=== PATIENT | male | born 1975 | race African-American/Black ===

== ENCOUNTER → 2017-07-24 | Outpatient (CLI) | payer BC ==
[2017-07-24 10:52] LABS: BASOPHILS % 1.2 % (0.0-2.0); HEMATOCRIT. 39.5 % (42.0-52.0); HEMOGLOBIN. 14.2 g/dL (14.0-18.0); LYMPHOCYTES % 38.2 % (20.0-50.0); MEAN CORPUSCULAR HEMOGLOBIN 33.6 pg (28.0-32.0); MEAN CORPUSCULAR VOLUME 93.2 fL (80.0-94.0); MEAN PLATELET VOLUME 7.2 fl (7.4-10.4); MONOCYTES % 7.8 % (2.0-8.0); NEUTROPHILS % 44.8 % (40.0-76.0); PLATELET 284 x1000/uL (130-400); RED BLOOD CELL COUNT 4.24 mill/uL (4.7-6.1); RED CELL DISTRIBUTION WIDTH 14.7 % (11.6-14.6)
[2017-07-24 10:53] LABS: KETONES URINE NEGATIVE (NEGATIVE); LEUKOCYTE ESTERASE URINE NEGATIVE (NEGATIVE); NITRITE URINE NEGATIVE (NEGATIVE); OCCULT BLOOD URINE NEGATIVE (NEGATIVE); PH URINE 7.5 (4.5-8.0); PROTEIN URINE NEGATIVE (NEGATIVE); SPECIFIC GRAVITY URINE 1.021 (1.005-1.030)
[2017-07-24 10:54] LABS: CLARITY URINE CLEAR (CLEAR); COLOR URINE YELLOW (YELLOW)
[2017-07-24 12:44] LABS: CHLORIDE 108 mEq/L (98-107)
== END | disposition home or self-care (01) ==
LOC: LAB 10:08
PROVIDERS: ATTEND Internal Medicine Nephrology
DX: R42 Dizziness and giddiness (principal)
CPT/HCPCS: 36415; 83036; 84443

== ENCOUNTER 2017-12-02 17:17 | Emergency (ER) | payer BC, OTHER ==
[~2017-12-02] VITALS: Ht 190.5 cm; Wt 100.0 kg
[2017-12-02 17:23] VITALS: BP 112/76
[2017-12-02 20:02] LABS: HEPATITIS B SURFACE AB 4.3 mIU/mL
[2017-12-02 20:13] LABS: HEPATITIS B SURFACE ANTIGEN NEGATIVE
[2017-12-04 08:21] LABS: HEPATITIS B CORE ANTIBODY Negative (Negative); HIV SCREEN 4G Non Reactive (Non Reactive)
== END 2017-12-02 18:49 | disposition left against medical advice (07) ==
LOC: ER 18:49
DX: S69.92XA Unspecified injury of left wrist, hand and finger(s), initial encounter (principal); X58.XXXA Exposure to other specified factors, initial encounter; Y93.89 Activity, other specified; Y92.89 Other specified places as the place of occurrence of the external cause; Y99.8 Other external cause status
CPT/HCPCS: 36415; 86703; 87186; 99284

== ENCOUNTER 2020-08-20 18:41 | Emergency (ER) | payer BC, OTHER ==
[~2020-08-20] VITALS: Ht 160 cm; Wt 97.0 kg
[2020-08-20] MEDS ORDERED: IBUPROFEN 600MG TABLET PO ONE (19:45)
[2020-08-20 20:10] VITALS: BP 117/73
== END 2020-08-20 20:40 | disposition home or self-care (01) ==
LOC: ER 18:41
DX: S61.011A Laceration without foreign body of right thumb without damage to nail, initial encounter (principal); Z98.890 Other specified postprocedural states; X58.XXXA Exposure to other specified factors, initial encounter; Y93.89 Activity, other specified; Y92.89 Other specified places as the place of occurrence of the external cause; Y99.8 Other external cause status
CPT/HCPCS: 99282; Z7610; 12001